=== PATIENT | male | born 1935 | race Caucasian/White ===

== ENCOUNTER 2019-06-03 16:48 | Emergency (ER) | payer MEDICARE ==
[~2019-06-03] VITALS: Ht 167.6 cm; Wt 78.5 kg
[2019-06-03 17:07] VITALS: BP 169/89
== END 2019-06-03 17:54 | disposition home or self-care (01) ==
LOC: ER 16:53
DX: S93.491A Sprain of other ligament of right ankle, initial encounter (principal); I10 Essential (primary) hypertension; E11.9 Type 2 diabetes mellitus without complications; E78.00 Pure hypercholesterolemia, unspecified; E78.5 Hyperlipidemia, unspecified; W18.39XA Other fall on same level, initial encounter; Y93.89 Activity, other specified; Y92.89 Other specified places as the place of occurrence of the external cause; Y99.8 Other external cause status
CPT/HCPCS: 73610-TC; 73630-TC